=== PATIENT | male | born 1945 | race Caucasian/White ===

== ENCOUNTER 2018-01-22 14:16 | Emergency (ER) | payer MEDICARE, OTHER ==
[2018-01-22] MEDS ORDERED: Ondansetron INJ* 2 MG/ML VIAL IV ONE (14:58)
[2018-01-22] MEDS ORDERED: Morphine INJ* 2 MG/ML 1 ML SYRINGE (TWO MG - NEW SYRINGE VERSION) IV ONE (15:01)
[2018-01-22] MEDS ORDERED: Morphine VIAL* 4 MG/ML VIAL (1 ml vial) IV ONE (15:05)
[2018-01-22] MEDS ORDERED: Morphine PF AMP (1 MG/ML)* 10 MG/10 ML AMP IV ONE (15:31)
--- NOTE | 2018-01-22 16:51 | ED ---
Upper Extremity Pain - HPI Summary HPI Summary: Pt presents with Rt UE pain and deformity s/p falling backwards prior to arrival. He and report he was loading garbage into the bed of his truck when he tripped backward and landed on his outstretched Rt arm and now has Rt UE pain w/ deformity. Has mild tingling in thumb, index and middle fingers. Has some mild SI joint pain as well as he also landed on his back/bottom. Denies numbness, tingling, weakness into LE's/pelvic area and no change in bowel/ bladder habits since. Rt UE is most painful injury - would like something for pain. Denies head injury and no MIXON, change in vision, neck pain, confusion or loss of memory. He does admit to taking anti-coagulants. Other than Rt UE pain, feels okay. 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 - - Allergies/Home Medications Allergies/Adverse Reactions: Allergies Allergy/AdvReac Type Severity Reaction Status Date / Time lisinopril Allergy Coughing Verified 01/22/18 14:36 Home Medications: Home Medications Metoprolol Tartrate TAB* [Lopressor TAB*] 25 mg PO DAILY 01/22/18 [History Confirmed 01/22/18] Rivaroxaban TAB(*) [Xarelto 20 mg] 20 mg PO DAILY 01/22/18 [History Confirmed ] Rosuvastatin Calcium 20 mg PO DAILY 01/22/18 [History Confirmed 01/22/18] Valsartan/Hydrochlorothiazide [Valsartan-Hctz 320-12.5 mg Tab] 1 tab PO DAILY [History Confirmed 01/22/18] PMH/Surg Hx/FS Hx/Imm Hx Previously Healthy: Yes Endocrine/Hematology History: Reports: Hx Anticoagulant Therapy - xarelto Cardiovascular History: Reports: Hx Hypertension - Immunization History Immunizations Up to Date: Yes Infectious Disease History: No Infectious Disease History: Denies: Traveled Outside the [place] in Last 30 Days - Social History Lives: With Family Alcohol Use: Weekly Hx Substance Use: No Substance Use Type: Reports: None Hx Tobacco Use: Yes - not currently Smoking Status (MU): Former Smoker Review of Systems Constitutional: Negative Negative: Fever, Chills, Fatigue Eyes: Negative Negative: Photophobia, Blurred Vision, Diplopia ENT: Negative Negative: Epistaxis, Dental Pain Cardiovascular: Negative Negative: Palpitations, Chest Pain Respiratory: Negative Negative: Shortness Of Breath Gastrointestinal: Negative Negative: Abdominal Pain, Vomiting, Diarrhea, Nausea Genitourinary: Negative Negative: incontinence Positive: Arthralgia, Decreased ROM - Rt UE Skin: Negative Positive: Paresthesia. Negative: Headache, Weakness, Numbness, Syncope, Slurred Speech Psychological: Normal All Other Systems Reviewed And Are Negative: Yes Physical Exam Triage Information Reviewed: Yes Vital Signs On Initial Exam: Initial Vitals Temp Pulse Resp BP Pulse Ox 97.9 F 49 17 145/80 96 01/22/18 14:30 01/22/18 14:30 01/22/18 14:30 01/22/18 14:30 01/22/18 14:30 Vital Signs Reviewed: Yes Appearance: Positive: Well-Appearing, Pain Distress - appears mild but requesting pain control, Obese Skin: Positive: Warm, Skin Color Reflects Adequate Perfusion, Dry - Rt UE deformed at proximal humerus/shoulder - no break in skin -elbow apears to be intact as does remaining distal portion of arm (dislocation vs. humerus fx); no ecchymosis, no erythema over affected area Head/Face: Positive: Normal Head/Face Inspection - atraumatic Eyes: Positive: Normal, EOMI, ELOINA - no photophobia, Conjunctiva Clear. Negative: Discharge ENT: Positive: Normal ENT inspection, Hearing grossly normal, Pharynx normal. Negative: Nasal drainage Dental: Negative: Dental Fracture @ Neck: Positive: Supple, Nontender - FROM w/o pain or restriction Respiratory/Lung Sounds: Positive: Breath Sounds Present. Negative: Stridor, Tracheal Deviation, Unable to speak in full sentences, Fatigue Cardiovascular: Positive: Pulses are Symmetrical in both Upper and Lower Extremities - weak pulses palated on Rt wrist - cap refill < 2 secs on all fingers - appears well perfused/warm/good color - no edema or deformity Musculoskeletal: Positive: Limited @ - Rt UE limited ROM d/t pain and deformity - can inductor tester but is weaker compared to Lt - no elbow deformity and NTTP; B/L LE's NTTP and w/o gross deformity, Pain @ - Rt UE, Other - moving B/L LE's w/o difficulty or weakness in stretcher and is able to transition from lying to sitting upright along side of stretcher w/ minimal dam tender assistant of upper body; can stand single leg B/L Neurological: Positive: Normal, Sensory/Motor Intact - sensation intact with gross touch in UE' and LE's B/L, Alert, Oriented to Person Place, Time, CN Intact II-III Psychiatric: Positive: Normal Procedures - Joint Reduction Right Joint Reduction Site: shoulder (R) Specify Other Joint Reduced: Rt shoulder Conscious Sedation: No - morphine Reduction Attempts: 1 Pre-Procedure NV Exam: Yes - tingling in thumb, index, middle fingers - cap refill < 2 sec, sens intact Post Joint Reduction Film: joint reduced - tingling resolved, N/V intact, inductor tester strength improved Diagnostics - Vital Signs Vital Signs Temp Pulse Resp BP Pulse Ox 01/22/18 16:16 137/73 01/22/18 16:15 27 83 01/22/18 15:14 15 01/22/18 14:30 97.9 F 49 17 145/80 96 - Laboratory Result Diagrams: 01/22/18 18:19 01/22/18 18:19 Lab Statement: Any lab studies that have been ordered have been reviewed, and results considered in the medical decision making process. Re-Evaluation - Re-Evaluation First Eval Change: Improved - Rt UE pain improved s/p reduction - Rt shoulder immobilizer placed - pt tolerated well - vitals stable and pulse ox improving s/p reduction Course/Dx - Course Course Of Treatment: Pt was seen in fast track initially for Rt UE pain w/ deformity s/p fall. He was in so much pain, initial focus was on pain control here and reduction of RT UE. He had great relief of pain in RUE once reduction was complete. Was able to move LE's throughout time and transition himself from lying to sitting on edge of bed and standing. Unfortunately, when he attempted to walk out for d/c, his Rt hip and leg had become "stiff" and difficulty ambulating without assistance (leaning against the wall). Evaluated pt and he has a hematoma of the Rt SI region/hip. thigh, knee, leg and ankle were all NTTP and w/o deformity. Well perfused and no ab/pelvic pain w/ palpation. Pt denies pain in pelvis/ab as well as weakness into extremity. Labs and CT scan ordered. Pt's pain is still well controlled while at rest. Will sign-out to Corby Mendoza PA-C pending labs and CT results assessing for extent of hematoma, internal injury/bleeding and possible fx of hip/pelvis. Vitals stable at time of transition of care and throughout visit except for pulse ox which was low d/ t narotic medications earlier in the visit. This corrected w/o supplemental O2 after reduction and before CT pelvis. H&H reviewed before leaving and appear stable. Corby Mendoza PA-C aware. - Diagnoses Provider Diagnoses: Fall from standing, Dislocation of right shoulder joint, Hip hematoma, right Discharge - Sign-Out/Discharge Documenting (check all that apply): Sign-Out Patient Signing out patient TO: Corby Mendoza - Discharge Plan Condition: Stable - Billing Disposition and Condition Condition: STABLE
[2018-01-22 18:27] LABS: Hematocrit 44 % (42-52); Hemoglobin 14.5 g/dl (14.0-18.0); Mean Corpuscular HGB Conc 33 g/dl (31-36); Mean Corpuscular Hemoglobin 28 pg (27-31); Mean Corpuscular Volume 86 fL (80-94); Mean Platelet Volume 8.8 fL (7.4-10.4); Platelet Count 159 10^3/ul (150-450); Red Blood Count 5.18 10^6/ul (4.00-5.40); Red Cell Distribution Width 14 % (10.5-15); White Blood Count 12.6 10^3/ul (3.5-10.8)
[2018-01-22 18:41] LABS: INR 1.35 (0.77-1.02)
[2018-01-22 18:44] LABS: EGFR Non-African American 97.6 (>60)
[2018-01-22] MEDS ORDERED: Iohexol 300* (CONTRAST) 10 ML SDV IV ONE (19:06)
--- NOTE | 2018-01-22 20:47 | PN ---
Progress Note - Progress Note Date of Service: 01/22/18 Note: Patient signed out to me by Delia martínez results of CT pelvis. CT pelvis impression: 1. Large hematoma in the soft tissues lateral to the right ilium with active extravasation of contrast. 2. Prior surgical intervention for right hip fracture with possible acute component involving the greater trochanter. Comparison with prior studies not available. 3 Cholelithiasis. Vascular surgery not available here at [facility] [place], patient will be transferred to [facility] ED to ED transfer. Receiving physician Dr. Beck. Patient transferred in stable condition. H&H within normal limits. Blood pressure stable. Pt on xarelto.
--- NOTE | 2018-01-22 21:27 | PN ---
Progress Note - Progress Note Date of Service: 01/22/18 Note: Discussed patient with Dr. Raman who recommended administration of kcentra for this patient on Xarelto with expanding hematoma. Spoke with the pharmacist who stated that they hold Kcentra for life-threatening situations. Patient currently stable. H&H within normal limits. K Centra not administered.
[2018-01-22 21:57] VITALS: BP 148/80
== END 2018-01-22 17:34 | disposition home or self-care (01) ==
LOC: ED 14:16
DX: S70.01XA Contusion of right hip, initial encounter (principal); S43.004A Unspecified dislocation of right shoulder joint, initial encounter; W19.XXXA Unspecified fall, initial encounter; Y92.9 Unspecified place or not applicable; Z87.891 Personal history of nicotine dependence; Z79.01 Long term (current) use of anticoagulants
CPT/HCPCS: 23650; 36415; 74177; 80048; 85027; 85610; 85730; 86850; 86900; 86901; 96374; 96375; 99285; J2270; J2274; J2405; Q9967